=== PATIENT | male | born 1995 | race American Indian/Alaskan Native ===

== ENCOUNTER 2019-08-02 19:06 | Emergency (ER) | payer SELFPAY ==
--- NOTE | 2019-08-02 20:06 | Event Note ---
ED Screening Note Date of service: 08/02/19 Time: 20:01 ED Screening Note: This is a 24 y.o. M. that presents to the ER with abdominal pain since yesterday. Reports nausea, vomiting, and diarrhea Current marijuana smoker, last smoked 3 days ago. Patient seen at [facility] yesterday. This initial assessment/diagnostic orders/clinical plan/treatment(s) is/are subject to change based on patients health status, clinical progression and re- assessment by fellow clinical providers in the ED. Further treatment and workup at subsequent clinical providers discretion. Patient/guardian urged not to elope from the ED as their condition may be serious if not clinically assessed and managed. Initial orders include: Labs and CT of abdomen and pelvis
[2019-08-02 21:24] LABS: Basophils % (Auto) 0.5 % (0.0-1.8); Hematocrit 48.3 % (35.5-45.6); Hemoglobin 16.2 gm/dl (11.8-15.2); Lymphocytes % (Auto) 23.2 % (13.4-35.0); Mean Corpuscular HGB Conc 34 % (32-34); Mean Corpuscular Volume 86 fl (84-94); Monocytes # (Auto) 0.7 K/mm3 (0.0-0.8); Platelet Count 191 K/mm3 (140-440); Red Blood Count 5.64 M/mm3 (3.65-5.03); Red Cell Distribution Width 14.7 % (13.2-15.2)
[2019-08-02] MEDS ORDERED: MORPHINE IV ONE (22:15)
[2019-08-02] MEDS ORDERED: ZOFRAN IV ONE (22:15)
[2019-08-02] MEDS ORDERED: NACL 0.9% 1000 ML 1,000 ML IV ONE (22:15)
[2019-08-02 22:16] LABS: Alanine Aminotransferase 25 units/L (7-56); BUN/Creatinine Ratio 12; Blood Urea Nitrogen 12 mg/dL (9-20); Calcium 9.9 mg/dL (8.4-10.2); Hemolysis Index 14
[2019-08-02 22:21] VITALS: BP 116/73
--- NOTE | 2019-08-02 23:26 | Emergency Department Report ---
ED Abdominal Pain HPI - General Chief Complaint: Abdominal Pain Stated Complaint: ABD PAIN Time Seen by Provider: 08/02/19 20:01 Source: patient Mode of arrival: Ambulatory Limitations: No Limitations - History of Present Illness Initial Comments: 24 yo M presents to ED w/ abdominal pain x 2 days. Patient states pain is diffuse with associated nausea, vomiting, and diarrhea. Denies fever and chills. States he was seen at [facility] and given prescription for pain and nausea medicine but states it did not help. Denies any sick contacts or possibly tainted foods. MD Complaint: abdominal pain -: days(s) (2) Location: diffuse Radiation: none Migration to: no migration Severity: moderate Severity scale (0 -10): 6 Quality: cramping Consistency: intermittent Improves With: nothing Worsens With: nothing Associated Symptoms: nausea, vomiting, diarrhea. denies: fever, chills - Related Data Previous Rx's Medication Instructions Recorded Last Taken Type Dicyclomine [Bentyl] 20 mg PO QID PRN #20 tablet 08/02/19 Unknown Rx Ondansetron [Zofran Odt] 4 mg PO Q8HR PRN #20 tab.rapdis 08/02/19 Unknown Rx Promethazine [Phenergan TAB] 25 mg PO Q6HR PRN #20 tab 08/02/19 Unknown Rx Allergies Allergy/AdvReac Type Severity Reaction Status Date / Time acetaminophen [From Tylenol] Allergy Swelling Verified 08/02/19 20:08 ibuprofen [From Motrin] Allergy Swelling Verified 08/02/19 20:08 ketorolac [From Toradol] Allergy Vomiting Verified 08/02/19 20:08 ED Review of Systems ROS: Stated complaint: ABD PAIN Other details as noted in HPI Comment: All other systems reviewed and negative Constitutional: denies: chills, fever Gastrointestinal: abdominal pain, nausea, vomiting, diarrhea ED Past Medical Hx - Past Medical History Previous Medical History?: Yes Additional medical history: appendix problem - Surgical History Past Surgical History?: No - Social History Smoking Status: Never Smoker Substance Use Type: Marijuana - Medications Home Medications: Home Medications Medication Instructions Recorded Confirmed Last Taken Type Dicyclomine [Bentyl] 20 mg PO QID PRN #20 tablet 08/02/19 Unknown Rx Ondansetron [Zofran Odt] 4 mg PO Q8HR PRN #20 tab.rapdis 08/02/19 Unknown Rx Promethazine [Phenergan TAB] 25 mg PO Q6HR PRN #20 tab 08/02/19 Unknown Rx ED Physical Exam - General Limitations: No Limitations General appearance: alert, in no apparent distress - Head Head exam: Present: atraumatic, normocephalic - Eye Eye exam: Present: normal appearance, PERRL, EOMI - ENT ENT exam: Present: mucous membranes moist - Neck Neck exam: Present: normal inspection - Respiratory Respiratory exam: Present: normal lung sounds bilaterally. Absent: respiratory distress - Cardiovascular Cardiovascular Exam: Present: normal rhythm, bradycardia - GI/Abdominal GI/Abdominal exam: Present: soft, tenderness (mild diffuse tenderness). Absent: distended - Extremities Exam Extremities exam: Present: normal inspection - Neurological Exam Neurological exam: Present: alert, oriented X3 - Psychiatric Psychiatric exam: Present: normal affect, normal mood - Skin Skin exam: Present: warm, dry, intact, normal color ED Course Vital Signs 08/02/19 08/02/19 20:03 22:14 Temperature 98.6 F Pulse Rate 54 L 58 L Respiratory 16 16 Rate Blood Pressure 123/81 Blood Pressure 116/73 [Left] O2 Sat by Pulse 100 97 Oximetry ED Medical Decision Making - Lab Data Result diagrams: 08/02/19 20:44 08/02/19 20:44 - Radiology Data Radiology results: report reviewed, image reviewed - Medical Decision Making 24 yo M w/ 2 day hx of diffuse abdominal pain, vomiting, and diarrhea. Vitals are normal. Labs unremarkable except for mild hypokalemia. CT scan shows prominent appendix, without any surrounding inflammation. Pt has no focus of pain or tenderness in RLQ, has mild diffuse tenderness on exam. WBCs normal, pt afebrile, likely not appendicitis. Likely gastroenteritis. No vomiting here in ED. Pt states no loose stools since yesterday. Will d/c at this time. Pt given return precautions, outpt f/u advised. - Differential Diagnosis gastroenteritis, pancreatitis, obstruction Critical care attestation.: If time is entered above; I have spent that time in minutes in the direct care of this critically ill patient, excluding procedure time. ED Disposition Clinical Impression: Gastroenteritis Disposition: DC-01 TO HOME OR SELFCARE Is pt being admited?: No Condition: Stable Instructions: Gastroenteritis (ED) Prescriptions: Dicyclomine [Bentyl] 20 mg PO QID PRN #20 tablet PRN Reason: abdominal pain Promethazine [Phenergan TAB] 25 mg PO Q6HR PRN #20 tab PRN Reason: Nausea Ondansetron [Zofran Odt] 4 mg PO Q8HR PRN #20 tab.rapdis PRN Reason: Vomiting Referrals: PRIMARY CARE, [Primary Care Provider] - 3-[address] [facility] [Provider Group] - 3-5 Days
--- NOTE | 2019-08-02 23:31 | Cat Scan Report ---
CT abdomen pelvis w con INDICATION: lower abdominal pain. TECHNIQUE: All CT scans at this location are performed using the following dose modulation technique: Automated exposure control. Helical slices were obtained through the abdomen and pelvis. 100 cc Omnipaque 300 i s administered. COMPARISON: None available. FINDINGS: Abdomen: The lung bases are clear. Liver, spleen, pancreas, adrenal glands, and kidneys are unremarka ble. The aorta is normal in diameter. There is no obstruction, inflammation, or free air. There are n o fluid collections. The appendix is prominent in size measuring 7 to 8 mm in diameter. There is no periappendiceal inflam mation. Pelvis: The bowel contained within the pelvis is unremarkable. There is no inflammatory change. There are no abnormal fluid collections. There is no free air. On review of bone windows, no acute osseous abnormalities are seen. IMPRESSION: 1. There is no obstruction, inflammation, or free air. There are no abnormal fluid collections 2. The appendix is prominent in size. There is no periappendiceal inflammation. This may simply repre sent this patient's anatomy. The possibility that this represents early mild appendicitis is included in the differential diagnosis. Signer Name: Luciano Alcala MD Signed: 08/02/2019 11:27 PM Workstation Name: [id number]
[2019-08-02 23:52] LABS: Bilirubin,Urine NEG (Negative); Blood,Urine NEG (Negative); Color,Urine Yellow (Yellow); Mucus,Urine 3+ /HPF; Protein,Urine <15 mg/dL mg/dL (Negative); Urobilinogen,Urine < 2.0 mg/dL (<2.0)
== END 2019-08-03 00:48 | disposition home or self-care (01) ==
LOC: ED 19:06
DX: K52.9 Noninfective gastroenteritis and colitis, unspecified (principal); F12.10 Cannabis abuse, uncomplicated; Z88.6 Allergy status to analgesic agent
CPT/HCPCS: 36415; 74177; 80053; 81001; 83690; 85025; 96361; 96374; 96375; 99284; J2270; J2405; J7030; Q9967

== ENCOUNTER 2019-09-26 11:54 | Emergency (ER) | payer SELFPAY ==
--- NOTE | 2019-09-26 12:33 | Event Note ---
ED Screening Note Date of service: 09/26/19 Time: 12:30 ED Screening Note: This is a 24 y.o. M. that presents to the ER with abdominal pain and constipated since awaking. Taking laxatives with no improvement of symptoms. + abdominal pain, nausea, vomiting, constipated This initial assessment/diagnostic orders/clinical plan/treatment(s) is/are subject to change based on patients health status, clinical progression and re- assessment by fellow clinical providers in the ED. Further treatment and workup at subsequent clinical providers discretion. Patient/guardian urged not to elope from the ED as their condition may be serious if not clinically assessed and managed. Initial orders include: Labs
[2019-09-26 13:57] LABS: Basophils % (Auto) 0.3 % (0.0-1.8); Hematocrit 45.9 % (35.5-45.6); Hemoglobin 15.9 gm/dl (11.8-15.2); Lymphocytes # (Auto) 1.2 K/mm3 (1.2-5.4); Lymphocytes % (Auto) 14.2 % (13.4-35.0); Mean Corpuscular HGB Conc 35 % (32-34); Mean Corpuscular Volume 84 fl (84-94); Monocytes # (Auto) 0.5 K/mm3 (0.0-0.8); Monocytes % (Auto) 5.9 % (0.0-7.3); Platelet Count 192 K/mm3 (140-440); Red Blood Count 5.45 M/mm3 (3.65-5.03); Red Cell Distribution Width 14.4 % (13.2-15.2)
[2019-09-26 14:32] LABS: Alanine Aminotransferase 29 units/L (7-56); Albumin 4.9 g/dL (3.9-5); BUN/Creatinine Ratio 19; Blood Urea Nitrogen 15 mg/dL (9-20); Calcium 9.9 mg/dL (8.4-10.2); Hemolysis Index 7
--- NOTE | 2019-09-26 15:31 | XRay Report ---
ABDOMEN 1 VIEW(S) INDICATION / CLINICAL INFORMATION: constipation. COMPARISON: None available. FINDINGS: TUBES / LINES: None. BOWEL GAS PATTERN: No significant abnormality. Normal stool in the colon. FREE AIR / EXTRALUMINAL GAS: None seen. ADDITIONAL FINDINGS: No significant additional findings. IMPRESSION: No significant abnormality. Signer Name: Blair Santos Jr, MD Signed: 09/26/2019 3:26 PM Workstation Name: [id number]
[2019-09-26] MEDS ORDERED: SODIUM CHLORIDE 0.9% 1000 ML 1,000 ML IV ONE (15:58)
[2019-09-26] MEDS ORDERED: diphenhydrAMINE 50 MG/ML VIAL IV ONE (15:58)
[2019-09-26] MEDS ORDERED: METOCLOPRAMIDE 10 MG/2 ML INJ IV ONE (15:58)
[2019-09-26] MEDS ORDERED: PANTOPRAZOLE 40 MG INJ IV ONE (15:58)
--- NOTE | 2019-09-26 15:59 | Emergency Department Report ---
ED Abdominal Pain HPI - General Chief Complaint: Abdominal Pain Stated Complaint: ABD PAIN Time Seen by Provider: 09/26/19 12:30 Source: patient, family, EMS Mode of arrival: Stretcher Limitations: No Limitations - History of Present Illness Initial Comments: 24-year-old -[place] male patient without significant medical history complains of sudden onset of nausea and vomiting diarrhea and epigastric pain this morning. Patient states this occurs every couple of months and in the past he has been diagnosed with gastroenteritis. He denies eating out yesterday. He denies any fever, chills, hematochezia, dysuria, melena, or hematemesis/coffee ground emesis. Patient does admit to marijuana use, but states this does not seem to be related to marijuana use. Patient states he also did eat fast food last night and is suspicious for food poisoning. MD Complaint: abdominal pain -: Sudden Location: epigastric Radiation: none Severity: severe Severity scale (0 -10): 10 Quality: stabbing Improves With: nothing Associated Symptoms: nausea, vomiting, diarrhea. denies: fever, constipation, dysuria, hematemesis, hematochezia, melena, hematuria, syncope - Related Data Previous Rx's Medication Instructions Recorded Last Taken Type Dicyclomine [Bentyl] 20 mg PO QID PRN #20 tablet 08/04/19 Unknown Rx Ondansetron [Zofran ODT TAB] 4 mg PO Q6HR PRN #20 tab.rapdis 08/04/19 Unknown Rx Famotidine [Pepcid] 20 mg PO BID #20 tablet 09/26/19 Unknown Rx Metoclopramide [Reglan] 10 mg PO TID PRN #15 tab 09/26/19 Unknown Rx diphenhydrAMINE [Benadryl CAP] 25 mg PO TID PRN #15 capsule 09/26/19 Unknown Rx Allergies Allergy/AdvReac Type Severity Reaction Status Date / Time acetaminophen [From Tylenol] Allergy Swelling Verified 08/02/19 20:08 ibuprofen [From Motrin] Allergy Swelling Verified 08/02/19 20:08 ketorolac [From Toradol] Allergy Vomiting Verified 08/02/19 20:08 ED Review of Systems ROS: Stated complaint: ABD PAIN Other details as noted in HPI Comment: All other systems reviewed and negative Constitutional: denies: chills, fever ENT: denies: throat pain Gastrointestinal: as per HPI ED Past Medical Hx - Past Medical History Hx Hypertension: No Hx Heart Attack/AMI: No Hx Congestive Heart Failure: No Hx Diabetes: No Hx Deep Vein Thrombosis: No Hx Pulmonary Embolism: No Hx Liver Disease: No Hx Renal Disease: No Hx Sickle Cell Disease: No Hx Arthritis: No Hx Kidney Stones: No Hx Asthma: No Hx COPD: No Hx Tuberculosis: No Hx Dementia: No Hx HIV: No Additional medical history: appendix problem - Surgical History Hx Coronary Stent: No Hx Open Heart Surgery: No Hx Internal Defibrillator: No Hx Cholecystectomy: No Hx Appendectomy: No (appendicitis coservative medical mangement) Hx Breast Surgery: No - Social History Smoking Status: Current Every Day Smoker Substance Use Type: Marijuana - Medications Home Medications: Home Medications Medication Instructions Recorded Confirmed Last Taken Type Dicyclomine [Bentyl] 20 mg PO QID PRN #20 tablet 08/04/19 Unknown Rx Ondansetron [Zofran ODT TAB] 4 mg PO Q6HR PRN #20 tab.rapdis 08/04/19 Unknown Rx Famotidine [Pepcid] 20 mg PO BID #20 tablet 09/26/19 Unknown Rx Metoclopramide [Reglan] 10 mg PO TID PRN #15 tab 09/26/19 Unknown Rx diphenhydrAMINE [Benadryl CAP] 25 mg PO TID PRN #15 capsule 09/26/19 Unknown Rx ED Physical Exam - General Limitations: No Limitations General appearance: alert, in no apparent distress - Head Head exam: Present: atraumatic, normocephalic - Eye Eye exam: Present: normal appearance. Absent: scleral icterus - ENT ENT exam: Present: mucous membranes moist - Neck Neck exam: Present: normal inspection - Respiratory Respiratory exam: Present: normal lung sounds bilaterally. Absent: respiratory distress - Cardiovascular Cardiovascular Exam: Present: regular rate, normal rhythm - GI/Abdominal GI/Abdominal exam: Present: soft, tenderness (epigastric). Absent: distended, rebound, rigid - Rectal Rectal exam: Present: deferred - Extremities Exam Extremities exam: Absent: pedal edema, joint swelling - Back Exam Back exam: Present: full ROM - Neurological Exam Neurological exam: Present: alert, oriented X3 - Psychiatric Psychiatric exam: Present: normal affect, normal mood - Skin Skin exam: Present: warm, dry, intact, normal color. Absent: rash ED Course Vital Signs 09/26/19 09/26/19 12:30 19:33 Temperature 97.3 F L 98.8 F Pulse Rate 50 L 77 Respiratory 18 16 Rate Blood Pressure 120/80 Blood Pressure 122/65 [Right] O2 Sat by Pulse 100 98 Oximetry ED Medical Decision Making - Lab Data Result diagrams: 09/26/19 13:30 09/26/19 13:30 Lab Results 09/26/19 09/26/19 Range/Units 13:30 13:30 WBC 8.8 (4.5-11.0) K/mm3 RBC 5.45 H (3.65-5.03) M/mm3 Hgb 15.9 H (11.8-15.2) gm/dl Hct 45.9 H (35.5-45.6) % MCV 84 (84-94) fl MCH 29 (28-32) pg MCHC 35 H (32-34) % RDW 14.4 (13.2-15.2) % Plt Count 192 (140-440) K/mm3 Lymph % (Auto) 14.2 (13.4-35.0) % Randall % (Auto) 5.9 (0.0-7.3) % Eos % (Auto) 0.0 (0.0-4.3) % Baso % (Auto) 0.3 (0.0-1.8) % Lymph # 1.2 (1.2-5.4) K/mm3 Randall # 0.5 (0.0-0.8) K/mm3 Eos # 0.0 (0.0-0.4) K/mm3 Baso # 0.0 (0.0-0.1) K/mm3 Seg Neutrophils % 79.6 H (40.0-70.0) % Seg Neutrophils # 7.0 (1.8-7.7) K/mm3 Sodium 139 (137-145) mmol/L Potassium 4.0 (3.6-5.0) mmol/L Chloride 106.2 (98-107) mmol/L Carbon Dioxide 14 L (22-30) mmol/L Anion Gap 23 mmol/L BUN 15 (9-20) mg/dL Creatinine 0.8 (0.8-1.5) mg/dL Estimated GFR > 60 ml/min BUN/Creatinine Ratio 19 % Glucose 127 H (75-100) mg/dL Calcium 9.9 (8.4-10.2) mg/dL Total Bilirubin 0.30 (0.1-1.2) mg/dL AST 22 (5-40) units/L ALT 29 (7-56) units/L Alkaline Phosphatase 74 (35-129) units/L Total Protein 8.3 H (6.3-8.2) g/dL Albumin 4.9 (3.9-5) g/dL Albumin/Globulin Ratio 1.4 % Lipase 16 (13-60) units/L - Radiology Data Radiology results: report reviewed CT ABDOMEN AND PELVIS WITH CONTRAST HISTORY: Diffuse abdominal pain COMPARISON: CT of the abdomen and pelvis on 08/02/2019. TECHNIQUE: Routine abdominal and pelvic CT exam performed following intravenous contrast administration. The patient received 100 mL of IV Omnipaque 300. All CT scans at this location are performed using CT dose reduction for ALARA by means of automated exposure control. FINDINGS: CT ABDOMEN: Lung Bases: No significant abnormality. Liver: No significant abnormality. Biliary: No significant abnormality. Spleen: No significant abnormality. Unenlarged. Pancreas: No significant abnormality. Adrenals: No significant abnormality. Kidneys: No significant abnormality. Lymphatics: No lymphadenopathy. Vasculature: No significant abnormality. Bowel/Peritoneum: No significant abnormality. No free air. No free fluid. Normal appendix. CT PELVIC: : No significant abnormality. Lymphatics: No lymphadenopathy. Osseous Structures: No aggressive appearing osseous lesions. Additional Findings: None IMPRESSION: 1. No acute or concerning abnormality in the abdomen and pelvis. No adverse change from the prior exam. - Medical Decision Making Patient here with acute onset of nausea vomiting and diarrhea this morning. Patient states the symptoms seem to recur every couple of months. He does admit to marijuana use. Labs are negative for acute findings. CT is without acute findings. Symptoms possibly due to cannabinoid hyperemesis versus gastroenteritis. Patient's symptoms are controlled with Reglan and Benadryl. His vitals are normal. Recommend follow-up with GI. Discussed strict return precautions in detail with patient who states understanding. Critical care attestation.: If time is entered above; I have spent that time in minutes in the direct care of this critically ill patient, excluding procedure time. ED Disposition Clinical Impression: Cannabinoid hyperemesis syndrome Disposition: DC-01 TO HOME OR SELFCARE Is pt being admited?: No Condition: Stable Instructions: Gastroenteritis (ED), Cannabis Abuse (ED) Prescriptions: diphenhydrAMINE [Benadryl CAP] 25 mg PO TID PRN #15 capsule PRN Reason: Nausea Famotidine [Pepcid] 20 mg PO BID #20 tablet Metoclopramide [Reglan] 10 mg PO TID PRN #15 tab PRN Reason: Nausea Referrals: PRIMARY CARE,MD [Primary Care Provider] - 3-5 Days [facility] [Provider Group] - 3-5 Days
[2019-09-26] MEDS ORDERED: ONDANSETRON 4 MG/2 ML INJ IM ONE (16:25)
[2019-09-26] MEDS ORDERED: MORPHINE 4 MG/1 ML INJ IM ONE (16:25)
--- NOTE | 2019-09-26 18:20 | Cat Scan Report ---
CT ABDOMEN AND PELVIS WITH CONTRAST HISTORY: Diffuse abdominal pain COMPARISON: CT of the abdomen and pelvis on 08/02/2019. TECHNIQUE: Routine abdominal and pelvic CT exam performed following intravenous contrast administrat ion. The patient received 100 mL of IV Omnipaque 300. All CT scans at this location are performed usi ng CT dose reduction for ALARA by means of automated exposure control. FINDINGS: CT ABDOMEN: Lung Bases: No significant abnormality. Liver: No significant abnormality. Biliary: No significant abnormality. Spleen: No significant abnormality. Unenlarged. Pancreas: No significant abnormality. Adrenals: No significant abnormality. Kidneys: No significant abnormality. Lymphatics: No lymphadenopathy. Vasculature: No significant abnormality. Bowel/Peritoneum: No significant abnormality. No free air. No free fluid. Normal appendix. CT PELVIC: : No significant abnormality. Lymphatics: No lymphadenopathy. Osseous Structures: No aggressive appearing osseous lesions. Additional Findings: None IMPRESSION: 1. No acute or concerning abnormality in the abdomen and pelvis. No adverse change from the prior genaroa m. Signer Name: Nikhil Porter MD Signed: 09/26/2019 6:16 PM Workstation Name: [id number]
[2019-09-26 19:34] VITALS: BP 122/65
== END 2019-09-26 19:15 | disposition home or self-care (01) ==
LOC: ED 11:54
DX: F12.288 Cannabis dependence with other cannabis-induced disorder (principal); R11.2 Nausea with vomiting, unspecified; F17.200 Nicotine dependence, unspecified, uncomplicated; Z79.899 Other long term (current) drug therapy; Z88.8 Allergy status to other drugs, medicaments and biological substances; Z88.6 Allergy status to analgesic agent
CPT/HCPCS: 36415; 74018; 74177; 80053; 83690; 85025; 96361; 96372; 96374; 96375; 99285; C9113; J1200; J2270; J2405; J7030; Q9967

== ENCOUNTER 2021-01-15 09:21 | Emergency (ER) | payer MEDICAID ==
[2021-01-15] MEDS ORDERED: SODIUM CHLORIDE 0.9% 1000 ML 1,000 ML IV ONE (09:41)
[2021-01-15] MEDS ORDERED: ONDANSETRON 4 MG/2 ML INJ IV ONE (09:41)
--- NOTE | 2021-01-15 09:43 | Event Note ---
ED Screening Note Date of service: 01/15/21 Time: 09:43 ED Screening Note: 25-year-old male presents to the ER with severe nausea vomiting shortness of breath and epigastric abdominal pain since this morning. Patient appears very uncomfortable and actively vomiting in the triage This initial assessment/diagnostic orders/clinical plan/treatment(s) is/are subject to change based on patients health status, clinical progression and re- assessment by fellow clinical providers in the ED. Further treatment and workup at subsequent clinical providers discretion. Patient/guardian urged not to elope from the ED as their condition may be serious if not clinically assessed and managed. Initial orders include: Abdominal pain order set including troponin, EKG and a chest x-ray
[2021-01-15] MEDS ORDERED: HALOPERIDOL LACTATE 5 MG/1 ML INJ IM ONE (09:53)
--- NOTE | 2021-01-15 09:55 | Emergency Department Report ---
ED Abdominal Pain HPI - General Chief Complaint: Dyspnea/Respdistress Stated Complaint: SOB/LISA Time Seen by Provider: 01/15/21 09:40 Source: patient Mode of arrival: Ambulatory Limitations: No Limitations - History of Present Illness Initial Comments: Patient is 25 years old male with history of cannabinod syndrome. Patient presented to the emergency room complaining of excessive nausea, vomiting and diffuse abdominal pain since this morning. Patient describes his pain as cramping. Patient is denying any fever, chills, chest pain cough or shortness of breath. Patient with a loud smell of marijuana in his closes. Patient is actively vomiting in the emergency room. MD Complaint: abdominal pain -: This morning Location: diffuse Radiation: none Migration to: no migration Severity: moderate Quality: cramping Associated Symptoms: nausea, vomiting. denies: diarrhea, chills, constipation, dysuria, hematemesis, hematochezia - Related Data Previous Rx's Medication Instructions Recorded Last Taken Type Dicyclomine [Bentyl] 20 mg PO QID PRN #20 tablet 08/04/19 Unknown Rx Ondansetron [Zofran ODT TAB] 4 mg PO Q6HR PRN #20 tab.rapdis 08/04/19 Unknown Rx Famotidine [Pepcid] 20 mg PO BID #20 tablet 09/26/19 Unknown Rx Metoclopramide [Reglan] 10 mg PO TID PRN #15 tab 09/26/19 Unknown Rx diphenhydrAMINE [Benadryl CAP] 25 mg PO TID PRN #15 capsule 09/26/19 Unknown Rx Ondansetron [Zofran Odt] 4 mg PO Q8HR PRN #14 tab.rapdis 01/15/21 Unknown Rx Allergies Allergy/AdvReac Type Severity Reaction Status Date / Time acetaminophen [From Tylenol] Allergy Swelling Verified 08/02/19 20:08 ibuprofen [From Motrin] Allergy Swelling Verified 08/02/19 20:08 ketorolac [From Toradol] Allergy Vomiting Verified 08/02/19 20:08 ED Review of Systems ROS: Stated complaint: SOB/LISA Other details as noted in HPI Comment: All other systems reviewed and negative Constitutional: denies: chills, fever Respiratory: denies: cough, shortness of breath, SOB with exertion, SOB at rest Cardiovascular: denies: chest pain, palpitations Gastrointestinal: abdominal pain, nausea, vomiting. denies: diarrhea, constipation, hematemesis, melena, hematochezia ED Past Medical Hx - Past Medical History Previous Medical History?: Yes Hx Hypertension: No Hx Heart Attack/AMI: No Hx Congestive Heart Failure: No Hx Diabetes: No Hx Deep Vein Thrombosis: No Hx Pulmonary Embolism: No Hx Liver Disease: No Hx Renal Disease: No Hx Sickle Cell Disease: No Hx Arthritis: No Hx Kidney Stones: No Hx Asthma: No Hx COPD: No Hx Tuberculosis: No Hx Dementia: No Hx HIV: No Additional medical history: appendix problem - Surgical History Past Surgical History?: Yes Hx Coronary Stent: No Hx Open Heart Surgery: No Hx Internal Defibrillator: No Hx Cholecystectomy: No Hx Appendectomy: No (appendicitis coservative medical mangement) Hx Breast Surgery: No - Social History Smoking Status: Current Every Day Smoker Substance Use Type: Alcohol, Marijuana - Medications Home Medications: Home Medications Medication Instructions Recorded Confirmed Last Taken Type Dicyclomine [Bentyl] 20 mg PO QID PRN #20 tablet 08/04/19 Unknown Rx Ondansetron [Zofran ODT TAB] 4 mg PO Q6HR PRN #20 tab.rapdis 08/04/19 Unknown Rx Famotidine [Pepcid] 20 mg PO BID #20 tablet 09/26/19 Unknown Rx Metoclopramide [Reglan] 10 mg PO TID PRN #15 tab 09/26/19 Unknown Rx diphenhydrAMINE [Benadryl CAP] 25 mg PO TID PRN #15 capsule 09/26/19 Unknown Rx Ondansetron [Zofran Odt] 4 mg PO Q8HR PRN #14 tab.rapdis 01/15/21 Unknown Rx ED Physical Exam - General Limitations: No Limitations General appearance: alert, in no apparent distress - Head Head exam: Present: atraumatic, normocephalic, normal inspection - Eye Eye exam: Present: normal appearance - ENT ENT exam: Present: mucous membranes dry - Neck Neck exam: Present: normal inspection, full ROM. Absent: tenderness, meningismus - Respiratory Respiratory exam: Present: normal lung sounds bilaterally - Cardiovascular Cardiovascular Exam: Present: regular rate, normal rhythm, normal heart sounds - GI/Abdominal GI/Abdominal exam: Present: soft, normal bowel sounds. Absent: distended, tenderness, guarding, rebound, rigid, organomegaly, mass, bruit, pulsatile mass, hernia - Extremities Exam Extremities exam: Present: normal inspection, full ROM, normal capillary refill. Absent: tenderness, pedal edema, joint swelling, calf tenderness - Back Exam Back exam: Present: normal inspection, full ROM. Absent: CVA tenderness (R), CVA tenderness (L) - Neurological Exam Neurological exam: Present: alert, oriented X3, CN II-XII intact, normal gait, reflexes normal. Absent: motor sensory deficit - Psychiatric Psychiatric exam: Present: normal mood - Skin Skin exam: Present: warm, intact, normal color ED Course Vital Signs 01/15/21 01/15/21 01/15/21 09:34 10:09 10:45 Temperature 98 F Pulse Rate 61 55 L 52 L Respiratory 22 21 20 Rate Blood Pressure 121/89 Blood Pressure 145/95 101/56 [Left] O2 Sat by Pulse 100 100 98 Oximetry 01/15/21 11:45 Temperature Pulse Rate 61 Respiratory 22 Rate Blood Pressure Blood Pressure 111/72 [Left] O2 Sat by Pulse 97 Oximetry ED Medical Decision Making - Lab Data Result diagrams: 01/15/21 09:50 01/15/21 09:50 - EKG Data -: EKG Interpreted by [facility] EKG shows normal: sinus rhythm Rate: bradycardia - EKG Data Interpretation: no acute changes - Radiology Data Radiology results: report reviewed - Medical Decision Making Patient is 25 years old male with history of cannabinod syndrome. Patient presented to the emergency room complaining of excessive nausea, vomiting and diffuse abdominal pain since this morning. Patient describes his pain as cramping. Patient is denying any fever, chills, chest pain cough or shortness of breath. Patient with a loud smell of marijuana in his closes. Patient is actively vomiting in the emergency room. Patient received Zofran, Haldol and normal saline. Patient stated that he is feeling much better. No nausea or vomiting observed after medication. Patient consulted about marijuana abuse and that might be the cause for what his recurrent symptoms. Patient given prescription for Zofran and advised to follow-up with his primary doctor in the next 2 to 3 days and return to the ER if he develop any new symptoms. Critical care attestation.: If time is entered above; I have spent that time in minutes in the direct care of this critically ill patient, excluding procedure time. ED Disposition Clinical Impression: Cannabinoid hyperemesis syndrome, Acute abdominal pain, Acute nausea with nonb ilious vomiting Disposition: - TO HOME OR SELFCARE Is pt being admited?: No Condition: Stable Instructions: Cannabis Use Disorder Prescriptions: Ondansetron [Zofran Odt] 4 mg PO Q8HR PRN #14 tab.rapdis PRN Reason: Nausea And Vomiting Referrals: PRIMARY CARE, [Primary Care Provider] - 3-5 Days
--- NOTE | 2021-01-15 10:51 | XRay Report ---
CHEST 1 VIEW INDICATION: SOB. COMPARISON: None. FINDINGS: Support devices: None. Heart: Normal. Lungs/Pleura: No acute pulmonary or pleural findings. IMPRESSION: 1. No acute findings. Signer Name: Bert Andrew MD Signed: 01/15/2021 10:47 AM Workstation Name: [id number]
[2021-01-15 10:59] LABS: Alanine Aminotransferase 45 units/L (7-56); Albumin 4.6 g/dL (3.9-5); BUN/Creatinine Ratio 14; Blood Urea Nitrogen 14 mg/dL (9-20); Calcium 9.5 mg/dL (8.4-10.2); Hemolysis Index 50
[2021-01-15 11:06] LABS: Basophils % (Auto) 0.5 % (0.0-1.8); Eosinophils # (Auto) 0.1 K/mm3 (0.0-0.4); Eosinophils % (Auto) 1.8 % (0.0-4.3); Hemoglobin 16.5 gm/dl (11.8-15.2); Lymphocytes # (Auto) 2.3 K/mm3 (1.2-5.4); Lymphocytes % (Auto) 36.1 % (13.4-35.0); Mean Corpuscular HGB Conc 34 % (32-34); Mean Corpuscular Volume 86 fl (84-94); Monocytes # (Auto) 0.6 K/mm3 (0.0-0.8); Monocytes % (Auto) 9.1 % (0.0-7.3); Platelet Count 203 K/mm3 (140-440); Red Blood Count 5.67 M/mm3 (3.65-5.03); Red Cell Distribution Width 15.2 % (13.2-15.2)
[2021-01-15 11:48] VITALS: BP 111/72
[2021-01-15 11:53] LABS: Bilirubin,Urine NEG (Negative); Blood,Urine NEG (Negative); Color,Urine Yellow (Yellow); Mucus,Urine 1+ /HPF; Urobilinogen,Urine < 2.0 mg/dL (<2.0)
[2021-01-15 11:58] LABS: Amphetamine Screen,Urine Negative; Benzodiazepines Screen,Urine Negative; Cocaine Screen,Urine Negative; Methadone Screen,Urine Negative; Opiate Screen,Urine Negative
[2021-01-15 12:14] LABS: Cannabinoid Screen,Urine Positive
== END 2021-01-15 13:09 | disposition home or self-care (01) ==
LOC: ED 09:21
DX: R10.84 Generalized abdominal pain (principal); R11.2 Nausea with vomiting, unspecified; F12.10 Cannabis abuse, uncomplicated; F17.200 Nicotine dependence, unspecified, uncomplicated; Z79.899 Other long term (current) drug therapy; Z88.8 Allergy status to other drugs, medicaments and biological substances
CPT/HCPCS: 36415; 71045; 80053; 80307; 81001; 83690; 84484; 85025; 93005; 96361; 96372; 96374; 99284; J1630; J2405; J7030; 96365

== ENCOUNTER 2021-03-12 15:34 | Emergency (ER) | payer MEDICAID ==
[2021-03-12 16:56] VITALS: BP 144/86
--- NOTE | 2021-03-12 16:58 | Event Note ---
ED Screening Note Date of service: 03/12/21 Time: 16:57 ED Screening Note: Pt c/o abdominal pain, constipation, and decreased urination x 3 days states abdominal pain is recurrent every few months, states stopped smoking marijuana after told possible cannabanoid heperemsis syndrome + nause, but vomiting is self inflicted per pt This initial assessment/diagnostic orders/clinical plan/treatment(s) is/are subject to change based on patients health status, clinical progression and re-assessment by fellow clinical providers in the ED. Further treatment and workup at subsequent clinical providers discretion. Patient/guardian urged not to elope from the ED as their condition may be serious if not clinically assessed and managed. Initial orders include: labs US
[2021-03-12 17:35] LABS: Basophils # (Auto) 0.1 K/mm3 (0.0-0.1); Basophils % (Auto) 0.9 % (0.0-1.8); Eosinophils % (Auto) 0.2 % (0.0-4.3); Hemoglobin 17.7 gm/dl (11.8-15.2); Lymphocytes # (Auto) 2.9 K/mm3 (1.2-5.4); Mean Corpuscular HGB Conc 34 % (32-34); Mean Corpuscular Volume 87 fl (84-94); Monocytes % (Auto) 9.1 % (0.0-7.3); Platelet Count 197 K/mm3 (140-440); Red Blood Count 5.99 M/mm3 (3.65-5.03); Red Cell Distribution Width 14.9 % (13.2-15.2)
[2021-03-12 17:37] LABS: Bilirubin,Urine NEG (Negative); Blood,Urine NEG (Negative); Color,Urine Amber (Yellow); Mucus,Urine 3+ /HPF; RBC,Urine < 1.0 /HPF (0.0-6.0)
[2021-03-12 17:53] LABS: Alanine Aminotransferase 37 units/L (7-56); Albumin 5.4 g/dL (3.9-5); BUN/Creatinine Ratio 16; Blood Urea Nitrogen 16 mg/dL (9-20); Calcium 10.1 mg/dL (8.4-10.2); Hemolysis Index 12
--- NOTE | 2021-03-12 17:56 | Ultrasound Report ---
US abdomen limited INDICATION: epigasric/RUQ pain COMPARISON: None. FINDINGS: Pancreas: No significant abnormality identified in the visualized portions of the pancreas. Abdominal aorta: No significant abnormality. IVC: Normal. Liver: No significant abnormality. Gallbladder: No gallstones, gallbladder wall thickening, or pericholecystic fluid. Bile ducts: The common bile duct measures 2 mm. Additional findings: No significant additional findings. IMPRESSION: No significant sonographic abnormality. Signer Name: Leonard Sena MD Signed: 03/12/2021 5:52 PM Workstation Name: [id number]
== END 2021-03-12 20:48 | disposition left against medical advice (07) ==
LOC: ED 15:34
DX: K59.00 Constipation, unspecified (principal); Z53.21 Procedure and treatment not carried out due to patient leaving prior to being seen by health care provider
CPT/HCPCS: 36415; 76705; 80053; 81001; 83690; 85025

== ENCOUNTER 2021-03-15 00:17 | Emergency (ER) | payer MEDICAID ==
[2021-03-15 00:34] VITALS: BP 123/85
== END 2021-03-15 08:55 ==
LOC: ED 00:17
DX: R10.9 Unspecified abdominal pain (principal); Z53.21 Procedure and treatment not carried out due to patient leaving prior to being seen by health care provider